=== PATIENT | female | born 1960 | race Caucasian/White ===

== ENCOUNTER → 2019-01-03 | Day surgery (SDC) | payer OTHER ==
[~2019-01-03] MED LIST: BLACK COHOSH540 MG PO; ESTROVEN MAX400 MCG PO; FENTANYL CITRATE/PF 100MCG/2 ML INJ ONE; GLUCAGON FOR INJ 1 MG VIAL ONE; HYOSCYAMINE SULFATE 0.5 MG/ML INJ ONE; LEVOCETIRIZINE D5 MG PO; MELOXICAM15 MG PO; MIDAZOLAM HCL 5 MG/ML VIAL ONE; ONDANSETRON HCL 4 MG ORAL DISINTEGRATING TAB ONE; PANTOPRAZOLE 40 MG 10ML VIAL ONE; PROPOFOL IV EMULSION 10 MG/ML 50 ML VIAL ONE; SLEEP AID; TIZANIDINE HCL2 MG PO; ULTRAM 50MG50 MG PO; WAL-DRYL ALLERG25 MG PO
[2019-01-03 18:24] LABS: WBC,FECAL (FECAL LACTOFERRIN) NEGATIVE (NEGATIVE)
--- NOTE | 2019-01-04 | Operative Report ---
DATE OF PROCEDURE: January 03, 2019 REFERRING PHYSICIAN: Dr. Dez Jordan. PROCEDURES 1. Esophagogastroduodenoscopy with biopsies and esophageal dilatation. 2. Colonoscopy with polypectomy and biopsies. INDICATIONS FOR ESOPHAGOGASTRODUODENOSCOPY: Heartburn, bloating, and dysphagia. INDICATIONS FOR COLONOSCOPY: Colorectal cancer screening and history of intermittent diarrhea. MEDICATIONS: The patient was done under MAC. Please see anesthesiologist's note. ESOPHAGOGASTRODUODENOSCOPY: With the patient in left lateral decubitus position, a flexible fiberoptic Olympus gastroscope was introduced into the esophagus under direct visualization without any difficulty. There was some patchy erythema noted in the distal esophagus. The GE junction was somewhat nodular and that was biopsied. Esophagus was then dilated to size 52-[place] Meeks. The scope was then advanced with ease into the stomach and mucosa overlying the antrum and the body revealed some patchy erythema and [id number] edema and biopsies were obtained and sent to stain for H. pylori. Pylorus appeared to be of normal contour and shape and was intubated with ease, and the scope was advanced all the way to the 2nd portion of the duodenum. The scope was then withdrawn slowly. Biopsies were obtained from the proximal 2nd portion and the duodenal bulb to rule out sprue. The scope was then withdrawn back into the stomach and retroflexed. Mucosa overlying the fundus and the cardia appeared to be within normal limits. The scope was then straightened out and was subsequently withdrawn. The patient tolerated the procedure well. IMPRESSION 1. Distal esophagitis. 2. Gastroesophageal junction, somewhat nodular, biopsied. 3. Mild stricture at gastroesophageal junction, dilated to size 52-[place] Meeks. 4. Gastritis, biopsied. Biopsy sent to stain for H. Pylori. 5. Rule out sprue. PLAN: Follow up histology. Initiate Protonix 40 mg 1 p.o. q.a.m. a.c. COLONOSCOPY: The patient was then turned around, and after adequate lubrication of the anal canal, a flexible fiberoptic Olympus colonoscope was inserted into the rectum with ease and advanced all the way to the cecum. Mucosa overlying the cecum grossly appeared to be within normal limits. The ileocecal valve was intubated and scope was advanced into the terminal ileum. Biopsies were obtained. The scope was then withdrawn back into the colon. It was then withdrawn slowly. Mucosa overlying the ascending and transverse appeared to be within normal limits. There were some patchy mild inflammatory changes noted in the left colon and random biopsies were obtained. Some diverticular disease was also noted in the left colon. Two polyps were hot biopsied from the sigmoid colon. The rectum grossly appeared to be within normal limits. The scope was then retroflexed into the distal rectum and small internal hemorrhoids were noted, none of which was actively bleeding. The scope was then straightened out and it was subsequently withdrawn after securing an adequate stool specimen that was sent for the appropriate stool studies. The patient tolerated the procedure well. IMPRESSION 1. Mild patchy left-sided colitis. 2. Diverticulosis. 3. Sigmoid colon polyps x2, hot biopsied. 4. Internal hemorrhoids, none actively bleeding. PLAN: Follow up histology. Follow up stool studies. Initiate Bentyl 10 mg 1 p.o. t.i.d. and VSL#3, 1 p.o. q.d. The patient might benefit from a followup colonoscopy in 3-5 years. Job#: [id number] RTY cc:Dez Jordan DO
[2019-01-04 14:57] LABS: C DIFFICILE TOXIN A&B AMP PROB NEGATIVE (NEGATIVE)
== END | disposition home or self-care (01) ==
LOC: OR 13:29
PROVIDERS: ATTEND Internal Medicine Gastroenterology
DX: K51.50 Left sided colitis without complications (principal); K63.5 Polyp of colon; K22.2 Esophageal obstruction; K29.70 Gastritis, unspecified, without bleeding; K20.9 Esophagitis, unspecified; K57.30 Diverticulosis of large intestine without perforation or abscess without bleeding; K64.8 Other hemorrhoids; F17.210 Nicotine dependence, cigarettes, uncomplicated; Z01.810 Encounter for preprocedural cardiovascular examination; Z68.30 Body mass index [BMI] 30.0-30.9, adult
CPT/HCPCS: 43239; 43450; 45380; 45384; 83630; 83993; 87045; 87177; 87328; 87493; 93005; C9113; J1610; J1980; J2250; J2704; Q0162; 45378